=== PATIENT | female | born 1965 | race Caucasian/White ===

== ENCOUNTER 2024-09-20 11:53 | Emergency (ER) | payer BC, SELFPAY ==
[2024-09-20 11:59] VITALS: BP 163/99
[2024-09-20 12:29] LABS: INR 0.96; PT 13.1 Sec (11.4-14.6)
[2024-09-20 12:34] LABS: % Basophils 0.9 % (0-2); % Eosinophils 1.2 % (0-6); % Immature Granulocytes 0.4 % (0-0.5); % Monocytes 4.9 % (1.7-9.3); % Neutrophils 71.6 % (42.2-75.2); Absolute Basophils 0.1 10^3/uL (0-0.2); Absolute Eosinophils 0.1 10^3/uL (0-0.7); Absolute Lymphocytes 1.6 10^3/uL (1.2-3.4); Absolute Monocytes 0.4 10^3/uL (0.1-0.6); Absolute Neutrophils 5.3 10^3/uL (1.4-6.5); Hematocrit 36.5 % (37.0-47.0); Hemoglobin 11.6 g/dL (12.0-16.0); Mean Corp Hgb Conc. 31.8 g/dL (33.0-37.0); Mean Corpuscular Hgb 19.6 pg (27.0-31.0); Mean Corpuscular Volume 61.8 fL (81.0-99.0); Nucleated Red Blood Cells % 0 %; Platelet Count 195 10^3/uL (130-400); Red Blood Cell Count 5.91 10^6/uL (4.20-5.40); Red Cell Dist. Width 17.9 % (11.5-14.5); White Blood Cell Count 7.4 10^3/uL (4.8-10.8)
[2024-09-20 12:36] LABS: ALT (SGPT) 15 U/L (0-35); AST (SGOT) 22 U/L (14-36); Albumin 4.8 g/dl (3.5-5.0); Alkaline Phosphatase 74 U/L (38-126); Blood Urea Nitrogen 15 mg/dl (7-17); Calcium 9.5 mg/dl (8.4-10.2); Carbon Dioxide 26 mmol/L (22-30); Chloride 105 mmol/L (98-107); Glucose 106 mg/dl (70-99); Sodium 140 mmol/L (135-145); Total Bilirubin 0.9 mg/dl (0.2-1.3); Total Protein 7.4 g/dl (6.3-8.2); eGFR > 60.00
[2024-09-20 12:45] VITALS: BP 159/92
[2024-09-20 12:45] LABS: Troponin I < 0.012 ng/ml
[2024-09-20 13:00] VITALS: BP 133/95
[2024-09-20 13:02] VITALS: BMI 32.0
--- NOTE | 2024-09-20 13:04 | ED.GENMED ---
History of Present Illness
General
Chief Complaint: Chest Pain
Source: patient
Time Seen by Provider: 09/20/24 13:02
History of Present Illness
History of Present Illness:
59yoF with a history of thalassemia presenting for evaluation of chest pain. She reports discomfort throughout her chest in a bandlike distribution which she describes as a heaviness. Pain has been constant for the past week. Symptoms are worse
with leaning forward and better with laying flat. She also reports increased belching over the past week. Pain intermittently gets worse after eating. Pain also intermittently radiates to the back. She denies any pleuritic or exertional pain.
She was seen at urgent care prior to arrival and was sent to the ED for evaluation. Patient denies any nausea, vomiting, dizziness, syncope, shortness of breath, cough, fever. Patient is not currently on any medications.
Phy Exam
General Physical Exam
General Presentation: well appearing and no apparent distress
General age: appears stated age
General Skin: warm and dry
General Habitus: normal
General Mental: alert
ENT Exam
ENT Exam: normocephalic
Cardiovascular Exam
Cardiovascular Exam: regular rate/rhythm, no edema, no murmur and normal peripheral pulses (2+ DP pulses bilaterally)
Pulmonary Exam
Pulmonary Exam: lungs clear, no respiratory distress, no rales, no crackles and no rhonchi
Neurological Exam
Neurological Exam: alert
[place] Coma Scale
Eye Opening: Spontaneous
Verbal Response: Oriented
Motor Response: Obeys Commands
GCS Total Score: 15
Skin Exam
Skin Exam: normal color and warm/dry
Psychiatric Exam
Psychiatric Exam: normal mood/affect
Scores
Heart Score for Chest Pain Patients
STEMI patient?: No
History: Moderately Suspicious
ECG: Normal
Age: >45 - <65 years
Risk Factors: No Risk Factors
Troponin: </= Normal Limit
Heart Score for Chest Pain Patients: 2
Heart Score Risk: 2.5% MACE over next 6 weeks
Course
Orders/Labs/Results
Orders:
Orders
09/20/24 11:54
ECG [Electrocardiogram (*1)] Urgent
Reason for Study: Chest Pain
EKG- Treatment ONCE
09/20/24 12:06
Complete Blood Count/With Diff Urgent
Comprehensive Metabolic Panel Urgent
D-Dimer Urgent
Comment: ADD ON
Protime/PTT Urgent
Troponin I Urgent
09/20/24 13:20
Add On- LAB Urgent
Tests Added?: Ddimer
Cardiac Monitoring- Treatment ONCE
CR Chest - 2 Views Urgent
Comment:
Reason For Exam: CP
Abnormal Lab Results
09/20/24
12:06
RBC 5.91 H 10^6/uL
(4.20-5.40)
Hgb 11.6 L g/dL
(12.0-16.0)
Hct 36.5 L %
(37.0-47.0)
MCV 61.8 L fL
(81.0-99.0)
MCH 19.6 L pg
(27.0-31.0)
MCHC 31.8 L g/dL
(33.0-37.0)
RDW 17.9 H %
(11.5-14.5)
Glucose 106 H mg/dl
(70-99)
09/20/24 12:06
09/20/24 12:06
Vital Signs
Initial and Last Documented VS:
Initial Vital Signs
Temp Pulse Resp BP Pulse Ox
98.6 F 72 18 163/99 98
09/20/24 11:59 09/20/24 11:59 09/20/24 11:59 09/20/24 11:59 09/20/24 11:59
Last Documented Vital Signs
Temp Pulse Resp BP Pulse Ox
98.6 F 67 14 138/88 96
09/20/24 11:59 09/20/24 14:00 09/20/24 14:00 09/20/24 14:00 09/20/24 14:00
MDM/Problems Addressed
Differential Diagnosis Includes:
59yoF here with constant chest pain x 1 week. Described as a heaviness. Worse with leaning forward, better with being flat. Also c/o belching. No SOB or syncope. Sent here by urgent care. No known cardiac risk factors. She is afebrile and
hemodynamically stable. She is well appearing in no distress. Exam is reassuring. Differential diagnosis includes but is not limited to: pericarditis, pneumonia, esophagitis, GERD, ACS, PE
Initial ED plan: Cardiac labs and EKG obtained in triage. EKG shows NSR without ischemic changes and troponin WNL. Will add D-dimer and CXR.
*EKG
Interpreted by ED Provider?: Yes
EKG Intrepretation Date: 09/20/24
Heart Rate: 66
Rate: normal
Rhythm: sinus
[place]: normal axis
Interval: normal interval
QRS Pattern: normal QRS
Ischemia: no ischemia
*Critical Care Note
Total Time (30-74mins, 75-104mins- exclusive of procedures): Not Applicable
Update Note
Update Note:
D-dimer normal making PE very unlikely. CXR is clear. HEART score is 2. No indication for hospitalization at this time. She was advised to call her PCP today to schedule a follow up appointment this week. Strict ED return precautions discussed. She
expressed understanding and is agreeable to plan. She was discharged in stable condition.
ED Attending Note
-
Portions of this chart may have been created with voice recognition software.� Occasional wrong word or��sound alike� substitutions may have occurred due to the inherent limitations of voice recognition software.
Discharge Plan
Departure
Patient Disposition: Home (Routine Discharge)
Date of Disposition: 09/20/24
Time of Disposition: 14:47
Patient with high blood pressure during this ER visit?: Yes
Discharge Problem:
Chest pain
Instructions: Chest Pain PCP Follow Up
Referrals:
Haven Seaman DO [Family Provider] -
Activity Restrictions/Additional Instructions:
Please call your family doctor today to schedule a follow-up appointment this week. Return to the ER immediately with any new or worsening symptoms.
Interventions
Interventions:
*Risk Screen - Suicide Last Done: 09/20/24 11:59
*General Assessment Last Done: 09/20/24 11:59
*Neglect/Abuse Screening Last Done: 09/20/24 11:59
*ED COVID-19 Vaccine History Last Done: 09/20/24 11:59
ED- Cardiac Assessment Last Done: 09/20/24 13:04
Discharge Date and Time
Print Language: [id number]
[2024-09-20 13:32] LABS: D-Dimer 0.33 ug/mlFEU (0.00-0.50)
[2024-09-20 14:00] VITALS: BP 138/88
== END 2024-09-20 15:15 | disposition home or self-care (01) ==
LOC: EMR 11:53
PROVIDERS: Emergency Medicine; EMERGENCY PHYSICIAN Emergency Medicine; FAMILY PHYSICIAN Internal Medicine
DX: R07.89 Other chest pain (principal)
CPT/HCPCS: 99283; 71046; 80053; 84484; 85025; 85379; 85610; 85730; 93005